=== PATIENT | female | born 1965 | race Caucasian/White ===

== ENCOUNTER 2017-11-15 08:32 | Emergency (ER) | payer OTHER ==
--- OUTSIDE RECORDS SUMMARY | 2017-11-15 08:35 | XMS REPORT | Continuity of Care Document ---
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 P [id number] [facility] B[employer]IT [facility] THE MAIL [employer] BENEFIT PLAN - [facility] [employer] [facility] THE MAIL [employer]LERS BENEFIT PLAN - [employer] [employer]IT [facility] [employer] [facility] B[employer]EFIT [facility]EFIT [facility] BENEFIT HEN[facility] BENEFIT HEN[facility] BENEFIT HEN[facility] BENEFIT HEN[facility] BENEFIT HEN[facility] BENEFIT H[facility] [facility] [facility] Encounters Encounter Performer Location Date Office Visit Zee Espana MD [facility] [place] Sep 02, 2014 Allergies, Adverse Reactions, Alerts Type Substance Reaction Status Drug allergy CODEINE Active Problems Problem Effective Dates Problem Status WELL WOMAN July 18, 2012 Active CONTRACEPTIVE MANAGEMENT July 18, 2012 Active FAMILY HISTORY BREAST CANCER Aug 27, 2013 Active BREAST MASS Jun 17, 2014 Active Procedures Date Description Comments Apr 08, 2010 mammogram Done May 10, 2011 vaginal Pap smear results Done July 18, 2012 smoking status never smoker July 18, 2012 mammogram Completed Aug 27, 2013 vaginal Pap smear results normal Aug 27, 2013 mammogram Completed Aug 27, 2013 smoking status Never smoker Apr 08, 2010 mammogram Completed Jun 17, 2014 smoking status Never smoker Jun 17, 2014 mammogram Completed Mar 16, 2009 mammogram Completed Mar 10, 2008 mammogram Completed Feb 13, 2007 mammogram Completed Feb 13, 2006 mammogram Completed Sep 02, 2014 vaginal Pap smear results normal Sep 02, 2014 smoking status Never smoker Medications Medication Instructions Start Date Status ZOLOFT 50 MG TABS 1 tab a day Active MIRCETTE 0.15-0.02/0.01 MG (30/07) TABS one tablet p.o. q. day July 18, 2012 Active WOMENS MULTIVITAMIN PLUS TABS 1 TAB BY MOUTH DAILY July 18, 2012 Inactive Vital Signs Date Description Test Result July 18, 2012 height E&M - 8302-2 HEIGHT 65 in July 18, 2012 weight E&M - 3141-9 WEIGHT 197.5 lb July 18, 2012 blood pressure, systolic - 8480-6 BP SYSTOLIC 132 mm Hg July 18, 2012 blood pressure, diastolic - 8462-4 BP DIASTOLIC 86 mm Hg Aug 27, 2013 weight E&M - 3141-9 WEIGHT 197 lb Aug 27, 2013 blood pressure, systolic, sitting, left arm BP SYS SIT L 168 mm Hg Aug 27, 2013 blood pressure, diastolic, sitting, left arm BP SAKINA SIT L 85 mm Hg Aug 27, 2013 blood pressure, systolic - 8480-6 BP SYSTOLIC 168 mm Hg Aug 27, 2013 blood pressure, diastolic - 8462-4 BP DIASTOLIC 85 mm Hg Aug 27, 2013 pulse rate, sitting, left PULSE SIT L 67 /min Aug 27, 2013 temperature E&M TEMPERATURE 98.3 deg f Aug 27, 2013 pulse rate E&M - 8867-4 PULSE RATE 67 /min Jun 17, 2014 weight E&M - 3141-9 WEIGHT 201 lb Jun 17, 2014 pulse rate, sitting, right PULSE SIT R 81 /min Jun 17, 2014 blood pressure, systolic, sitting, right arm BP SYS SIT R 136 null Jun 17, 2014 blood pressure, diastolic, sitting, right arm BP SAKINA SIT R 81 mmHg Jun 17, 2014 blood pressure, systolic - 8480-6 BP SYSTOLIC 136 mm Hg Jun 17, 2014 blood pressure, diastolic - 8462-4 BP DIASTOLIC 81 mm Hg Jun 17, 2014 pulse rate E&M - 8867-4 PULSE RATE 81 /min Sep 02, 2014 weight E&M - 3141-9 WEIGHT 208 lb Sep 02, 2014 blood pressure, systolic, sitting, left arm BP SYS SIT L 139 mm Hg Sep 02, 2014 blood pressure, diastolic, sitting, left arm BP SAKINA SIT L 90 mm Hg Sep 02, 2014 blood pressure, systolic - 8480-6 BP SYSTOLIC 139 mm Hg Sep 02, 2014 blood pressure, diastolic - 8462-4 BP DIASTOLIC 90 mm Hg Sep 02, 2014 pulse rate, sitting, left PULSE SIT L 71 /min Sep 02, 2014 pulse rate E&M - 8867-4 PULSE RATE 71 /min Results Date Description Test Name Value Reference Interpretation Status May 10, 2011 vaginal Pap smear PAP SMEAR Done null results Aug 27, 2013 vaginal Pap smear PAP SMEAR normal null results Sep 02, 2014 vaginal Pap smear PAP SMEAR normal null results
--- OUTSIDE RECORDS SUMMARY | 2017-11-15 08:35 | XMS REPORT | Continuity of Care Document ---
:[address] 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 q. day July 18, 2012 Active Vital Signs Date Description Test Result July [...] E&M - 8867-4 PULSE RATE 81 /min Results Date Description Test Name Value Reference Interpretation Status May 10, 2011 vaginal Pap smear PAP SMEAR Done null results Aug 27, 2013 vaginal Pap smear PAP SMEAR normal null results
--- OUTSIDE RECORDS SUMMARY | 2017-11-15 08:35 | XMS REPORT | Continuity of Care Document ---
:1965 Author Organization Interface Problems Problem Status Onset Classification Date Comments Source Date Reported BREAST MASS Active Condition 09/02/2014 Medical 5 Group FAMILY HISTORY Active Condition 09/02/2014 Medical BREAST CANCER 4 Group WELL WOMAN Active Condition 09/02/2014 Medical 3 Group CONTRACEPTIVE Active Condition 09/02/2014 Medical MANAGEMENT 3 Group Medications Medication Details Route Status Patient Ordering Order Source Instructions Provider Date WOMENS 1 TAB BY No Longer 07/19/19 MULTIVITAMIN MOUTH Active 13 Medical PLUS TABS DAILY Group MIRCETTE one tablet Active 07/19/19 MH 0.15-0.02/0.01 p.o. q. 13 Medical MG (30/07) TABS day Group MIRCETTE one tablet Active 07/19/19 MH 0.15-0.02/0.01 p.o. q. 13 Medical MG (30/07) TABS day Group ZOLOFT 50 MG 1 tab a Active MH TABS day Medical Group ZOLOFT 50 MG 1 tab a Active TABS day Medical Group Allergies, Adverse Reactions, Alerts Substance Category Reaction Severity Reaction Status Date Comments Source type Reported CODEINE Drug CODEINE allergy Medical Group Immunizations Immunization Date Given Site Status Last Updated Comments Source Results Order Name Results Value Reference Date Interpretation Comments Source Range Breast Breast 01/10 - [facility] KENYETTA incl KENYETTA incl CAD MA CAD MA Read by: Sung Pena MD Dictated Date/time: 01/10/17 09:41 BILATERAL DIGITAL SCREENING MAMMOGRAM WITH CAD: 01/10/2017 Electronically Signed by: Sung Pena MD 01/10/17 09 :41 FINAL REPORT CLINICAL: Screening/Screening. Current study was evaluated with a Computer Aided Detection (CAD) system. COMPARISON:Comparison is made to exams dated: 11/04/2015 mammogram, 2014 mammogram, and 08/27/2013 mammogram - [facility]. TECHNIQUE: Mammographic views were obtained using digital acquisition. Current study was also evaluated with a Computer Aided Detection (CAD) system. There are scattered fibroglandular densities in both breasts. FINDINGS: There are benign calcifications in the right breast. No significant masses, calcifications, or other findings are seen in either breast. There has been no significant interval change. IMPRESSION: BENIGN RECOMMENDATION:There is no mammographic evidence of malignancy. A 1 year screening mammogram is recommended.(01/11/2018) This exam was interpreted at [id number] for [place]. Sung Pena M.D. jt/penrad:01/10/2017 09:41:42 Service Observer(s): Leticia Wallace, [facility] letter sent: BI-RADS 1/2 Mammogram BI-RADS: 2 Benign Digital Digital - DIGITAL MAMMO SCREENING KENYETTA HAQUE 11/03 - [facility]2016 - [place] Screening Screening BILATERAL DIGITAL SCREENING MAMMOGRAM WITH CAD: 2015 Kenyetta Anthony MA CLINICAL: Screening. Read by: Russ Parks MD Dictated Date/time: 11/04/15 14:35 Electronically Signed by: Russ Parks 11/04/15 14:35 FINAL REPORT Current study was evaluated with a Computer Aided Detection (CAD) system. Comparison is made to exams dated: 08/27/2013 mammogram and 09/02/2014 mammogram - [facility]. There are scattered fibroglandular densities in both breasts. No significant masses, calcifications, or other findings are seen in either breast. There has been no significant interval change. IMPRESSION: NEGATIVE There is no mammographic evidence of malignancy. A 1 year screening mammogram is recommended. Russ Parks M.D jv/penrad:11/04/2015 14:35:32 Service Observer: Marsha Franz, [facility] This exam was dictated and interpreted by [id number] for [facility]. letter sent: Normal exam Mammogram BI-RADS: 1 Negative [place] [place] PAP SMEAR normal 09/02 Medical Group [employer] [place] PAP SMEAR normal 08/27 Medical Group Pathology PAP SMEAR normal 08/27 Medical Group [place] [place] PAP SMEAR Done Medical Group Pathology PAP SMEAR Done Medical Group Vital Signs Vital Sign Value Date Comments Source Weight 208 09/02/2014 Medical Group Systolic (mm Hg) 139 09/02/2014 Medical Group Diastolic (mm Hg) 90 09/02/2014 Medical Group Heart Rate 71 09/02/2014 Medical Group Weight 201 06/17/2014 Medical Group Heart Rate 81 06/17/2014 Medical Group Systolic (mm Hg) 136 06/17/2014 Medical Group Diastolic (mm Hg) 81 06/17/2014 Medical Group Weight 197 08/27/2013 Medical Group Systolic (mm Hg) 168 08/27/2013 Medical Group Diastolic (mm Hg) 85 08/27/2013 Medical Group Heart Rate 67 08/27/2013 Medical Group Temperature Oral (F) 98.3 F 08/27/2013 Medical Group Height 65 07/18/2012 Medical Group Weight 197.5 07/18/2012 Medical Group Systolic (mm Hg) 132 07/18/2012 Medical Group Diastolic (mm Hg) 86 07/18/2012 Medical Group Encounters Location Location Encounter Encounter Reason Attending ADM DC Status Source Details Type Number For Provider Date Date Visit [facility] Lab Report [id number] Buffy 08/27 08/27 [facility] [address] /2013 [facility] [place] [facility] Office [id number] Zee 06/17 06/17 [facility] Visit [address], /2014 Medical [facility] [place] [facility] [employer] [facility] Lab Report [id number] Zee 09/02 09/02 [facility] [address], /2014 Medical [facility] [place] [facility] [facility] Office [id number] Zee 09/02 09/02 [facility] Visit [address], /2014 Medical [facility] [place] [facility] [employer] [facility] Outpatient [id number] MAMMO VISIT 09/[address] [facility] [place] [facility] [id number] ZEE-JOSE ENRIQUE 09/06 [facility] [place] [facility] [id number] MAMMO VISIT 11/[address] [facility] [place] [facility] [id number] ZEE-JOSE ENRIQUE 11/03 Active [facility] [place] [facility] [id number] ZEE-JOSE ENRIQUE 11/09 Active [facility] [place] [facility] [id number] ZEE-JOSE ENRIQUE 11/29 [facility] [place] Outpatient [id number] MAMMO VISIT 11/[address] [facility] [place] Outpatient [id number] MAMMO VISIT 01/[address] [facility] [place] Outpatient [id number] ZEE-JOSE ENRIQUE 01/10 [facility] [place] Outpatient [id number] MAMMO VISIT 01/[address] [facility] [place] Procedures Procedure Code Date Perfomer Comments Source vaginal Pap smear 67965 09/02/2014 normal Medical results Group mammogram 67519 09/02/2014 Completed Medical Group mammogram 64577 06/17/2014 Completed Medical Group vaginal Pap smear 81353 08/27/2013 normal Medical results Group mammogram 86173 08/27/2013 Completed Medical Group mammogram 70934 07/18/2012 Completed Medical Group vaginal Pap smear 94530 05/10/2011 Done Medical results Group mammogram 03861 04/08/2010 Done Medical Group mammogram 22797 04/08/2010 Completed Medical Group mammogram 52382 03/16/2009 Completed Medical Group mammogram 23423 03/10/2008 Completed Medical Group mammogram 26584 02/13/2007 Completed Medical Group mammogram 95129 02/13/2006 Completed Medical Group
--- OUTSIDE RECORDS SUMMARY | 2017-11-15 08:35 | XMS REPORT | Continuity of Care Document ---
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 q. day July 18, 2012 Active WOMENS MULTIVITAMIN PLUS TABS 1 TAB BY MOUTH DAILY July 18, 2012 Inactive Vital Signs Date Description Test Result July 18, 2012 height E&M - 8302-2 HEIGHT 65 in July 18, 2012 weight Princess&M - 3141-9 WEIGHT 197.5 lb July 18, [...] RATE 67 /min Jun 17, 2014 weight E&Alena - 3141-9 WEIGHT 201 lb Jun 17, [...]
--- OUTSIDE RECORDS SUMMARY | 2017-11-15 08:35 | XMS REPORT | Continuity of Care Document ---
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 [employer] Aug 27, 2013 Allergies, Adverse Reactions, Alerts Type Substance Reaction Status Drug allergy CODEINE Active Problems Problem Effective Dates Problem Status WELL WOMAN July 18, 2012 Active CONTRACEPTIVE MANAGEMENT July 18, 2012 Active FAMILY HISTORY BREAST CANCER Aug 27, 2013 Active Procedures Date Description Comments Apr 08, 2010 mammogram Done May 10, 2011 vaginal Pap smear results Done July 18, 2012 smoking status never smoker July 18, 2012 mammogram Completed Aug 27, 2013 vaginal Pap smear results normal Aug 27, 2013 mammogram Completed Aug 27, 2013 smoking status Never smoker Apr 08, 2010 mammogram Completed Medications Medication Instructions Start Date Status ZOLOFT 50 MG TABS 1 tab a day Active WOMENS MULTIVITAMIN PLUS TABS 1 TAB BY MOUTH DAILY July 18, 2012 Active MIRCETTE 0.15-0.02/0.01 MG (30/07) TABS one tablet p.o. q. day July 18, 2012 Active Vital Signs Date Description Test Result July 18, 2012 height E&M HEIGHT 65 in July 18, 2012 weight E&M WEIGHT 197.5 lb July 18, 2012 blood pressure, systolic BP SYSTOLIC 132 mm Hg July 18, 2012 blood pressure, diastolic BP DIASTOLIC 86 mm Hg Aug 27, 2013 weight E&M WEIGHT 197 lb Aug 27, 2013 blood pressure, systolic, sitting, left arm BP SYS SIT L 168 mm Hg Aug 27, 2013 blood pressure, diastolic, sitting, left arm BP SAKINA SIT L 85 mm Hg Aug 27, 2013 blood pressure, systolic BP SYSTOLIC 168 mm Hg Aug 27, 2013 blood pressure, diastolic BP DIASTOLIC 85 mm Hg Aug 27, 2013 pulse rate, sitting, left PULSE SIT L 67 /min Aug 27, 2013 temperature E&M TEMPERATURE 98.3 deg f Aug 27, 2013 pulse rate E&M PULSE RATE 67 /min Results Date Description Test Name Value Reference Interpretation Status May 10, 2011 vaginal Pap smear PAP SMEAR Done null results Aug 27, 2013 vaginal Pap smear PAP SMEAR normal null results
[2017-11-15 09:15] LABS: Absolute Lymphocytes (CBC) 1.1 K/uL (0.7-4.9); Absolute Monocytes 0.4 K/uL (0.1-1.3); Absolute Neutrophil 5.2 K/uL (1.8-8.0); Basophils % 0.6 % (0-1.3); Eosinophils % 1.8 % (0-4.4); Hematocrit 40.4 % (36.0-45.0); Lymphocytes % 15.7 % (15.3-44.8); MCH 30.1 pg (27.0-35.0); MCV 87.4 fL (80-100); MPV 7.7 fL (7.6-11.3); Monocytes % 6.2 % (3.3-12.3); RBC Red Blood Cell Count 4.62 M/uL (3.86-4.86)
[2017-11-15 09:28] LABS: Protime INR 0.96
--- NOTE | 2017-11-15 09:33 | RAD REPORT ---
EXAM DESCRIPTION: RAD - Chest Single View - 11/15/2017 9:17 am CLINICAL HISTORY: Chest pain;Palpitations Chest pain. COMPARISON: Chest Single View dated 12/27/2016; CHEST PA AND LAT 2 VIEW dated 11/25/2014; CHEST PA AN D LAT 2 VIEW dated 07/10/2012; CHEST SINGLE VIEW dated 05/28/2010 FINDINGS: Portable technique limits examination quality. The lungs are grossly clear. The heart is normal in size. No displaced fractures. IMPRESSION: No acute intrathoracic process suspected.
[2017-11-15 09:38] LABS: ALT/SGPT 21 U/L (12-78); AST/SGOT 20 U/L (15-37); Albumin 4.1 g/dL (3.4-5.0); Alkaline Phosphatase 98 U/L (45-117); BUN Blood Urea Nitrogen 16 mg/dL (7-18); Bicarbonate 31 mmol/L (21-32); Bilirubin Direct 0.1 mg/dL (0-0.2); Bilirubin Total 0.4 mg/dL (0.2-1.0); CKMB Creatine Kinase MB < 1.0 ng/mL (0.3-3.6); Creatine Phosphokinase 91 U/L (26-192); Glucose Level 83 mg/dL (74-106); Magnesium 2.2 mg/dL (1.8-2.4); NT PRO-BNP 123 pg/mL (<125); Potassium 4.2 mmol/L (3.5-5.1); Sodium Level 140 mmol/L (136-145); Troponin (Emerg Dept Use Only) < 0.02 ng/mL (0.0-0.045)
--- NOTE | 2017-11-15 11:12 | EKG ---
Test Date: 2017-11-15 Test Time: 08:49:55 [place] Attendant: MARY MEASUREMENT RESULTS: Intervals: Rate: 76 CT: 138 QRSD: 90 QT: 428 QTc: 481 [place]: P: 20 CT: 138 QRS: 11 T: 11 INTERPRETIVE STATEMENTS: Normal sinus rhythm with sinus arrhythmia Minimal voltage criteria for LVH, may be normal variant Cannot rule out Anterior infarct, age undetermined Abnormal ECG Compared to ECG 05/28/2010 11:42:11 Left ventricular hypertrophy now present Myocardial infarct finding now present ST (T wave) deviation no longer present Electronically Signed On 11-15-17 11:11:22 CDT by Chriss Saavedra
[2017-11-15 13:08] LABS: CKMB Creatine Kinase MB < 1.0 ng/mL (0.3-3.6); Creatine Phosphokinase 71 U/L (26-192); Troponin (Emerg Dept Use Only) < 0.02 ng/mL (0.0-0.045)
--- NOTE | 2017-11-15 13:19 | ER ---
Nurse's Notes [facility] Name: Caity Lala Age: 52 yrs Sex: Female : 1965 Arrival Date: 11/15/2017 Time: 08:34 Bed 26 Private MD: Franky Vega Diagnosis: Chest pain, unspecified Presentation: 11/15 08:37 Presenting complaint: Patient states: chest pain and palpitations that began this aa5 morning. Pt states "I had this years ago and they said it was a panic attack". 08:37 Transition of care: patient was not received from another setting of care. Onset of aa5 symptoms was November 15, 2017. Risk Assessment: Do you want to hurt yourself or someone else? Patient reports no desire to harm self or others. Initial Sepsis Screen: Does the patient meet any 2 criteria? No. Patient's initial sepsis screen is negative. Does the patient have a suspected source of infection? No. Patient's initial sepsis screen is negative. Care prior to arrival: None. 08:37 Method Of Arrival: Ambulatory aa5 08:37 Acuity: SUZANNA 3 aa5 Triage Assessment: 08:59 General: Appears in no apparent distress. uncomfortable, Behavior is calm, cooperative, hj appropriate for age. Pain: Complains of pain in chest Pain currently is 9 out of 10 on a pain scale. 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 - Social history:: Smoking status: Patient/guardian denies using tobacco. - Ebola Screening: : No symptoms or risks identified at this time. Screenin:58 Abuse screen: Denies threats or abuse. Nutritional screening: No deficits noted. hj Tuberculosis screening: No symptoms or risk factors identified. Fall Risk None identified. Assessment: 09:01 General: Appears in no apparent distress. uncomfortable, Behavior is calm, cooperative, hj appropriate for age. Pain: Complains of pain in chest. Neuro: Level of Consciousness is awake, alert, obeys commands, Oriented to person, place, time, situation, Appropriate for age. Cardiovascular: Capillary refill < 3 seconds Patient's skin is warm and dry. Respiratory: Airway is patent Respiratory effort is even, unlabored, Respiratory pattern is regular, symmetrical. GI: No signs and/or symptoms were reported involving the gastrointestinal system. : No signs and/or symptoms were reported regarding the genitourinary system. EENT: No signs and/or symptoms were reported regarding the EENT system. Derm: No signs and/or symptoms reported regarding the dermatologic system. Musculoskeletal: No signs and/or symptoms reported regarding the musculoskeletal system. 09:10 Reassessment: states "i think its just panic attack, but i want to make sure its not my hj heart"; family in room;. 10:00 Reassessment: Patient appears in no apparent distress at this time. Patient and/or ch family updated on plan of care and expected duration. Pain level reassessed. Patient is alert, oriented x 3, equal unlabored respirations, skin warm/dry/pink. Patient states feeling better. Patient states symptoms have improved. General: Appears in no apparent distress. comfortable, Behavior is cooperative, appropriate for age. Pain: Complains of pain in chest Pain currently is 8 out of 10 on a pain scale. 11:00 Reassessment: Patient appears in no apparent distress at this time. Patient and/or ch family updated on plan of care and expected duration. Pain level reassessed. Patient is alert, oriented x 3, equal unlabored respirations, skin warm/dry/pink. Patient states feeling better. Patient states symptoms have improved. 12:30 Reassessment: Patient appears in no apparent distress at this time. No changes from previously documented assessment. Patient and/or family updated on plan of care and expected duration. Pain level reassessed. pt verb understanding of wait for repeated cardiac enzymes. 13:55 Reassessment: Patient appears in no apparent distress at this time. Patient and/or ch family updated on plan of care and expected duration. Pain level reassessed. Patient is alert, oriented x 3, equal unlabored respirations, skin warm/dry/pink. Vital Signs: 08:39 BP 154 / 92; Pulse 77; Resp 18 S; Temp 97.4(TE); Pulse Ox 100% on R/A; Weight 81.65 kg aa5 (R); Height 5 ft. 4 in. (162.56 cm) (R); Pain 9/10; 09:11 BP 122 / 67; Pulse 75; Resp 18; Pulse Ox 100% on R/A; Pain 9/10; hj 10:00 BP 116 / 71; Pulse 77; Resp 16; Temp 98.3; Pulse Ox 99% on R/A; Pain 8/10; ch 13:55 BP 118 / 78; Pulse 84; Resp 16; Temp 97.9; Pulse Ox 99% on R/A; Pain 5/10; ch 08:39 Body Mass Index 30.90 (81.65 kg, 162.56 cm) aa5 10:00 pt states she does not want any pain medication at this time ED Course: 08:34 Patient arrived in ED. mr 08:34 Franky Vega MD is Private Physician. mr 08:38 Arm band placed on Patient placed in an exam room, on a stretcher. aa5 08:42 [facility] Rogel [facility]-C [facility]. snw 08:42 Iván Pool MD is Attending Physician. snw 08:46 Steve Camejo, JOSTIN is Primary Nurse. hj 08:47 Triage completed. aa5 08:56 EKG done, by soils technician. reviewed by Lydia LONG. 3 08:56 Initial lab(s) drawn, by ma, sent to lab. Inserted saline lock: 22 gauge in left hj antecubital area, using aseptic technique. Blood collected. 08:59 Patient has correct armband on for positive identification. Placed in gown. Bed in low hj position. Call light in reach. Side rails up X 1. 09:16 X-ray completed. Portable x-ray completed in exam room. Patient tolerated procedure sw well. 09:17 XRAY Chest (1 view) In Process Unspecified. EDMS 10:00 No apparent distress. Resting quietly. ch 10:00 child monitor on. Pulse ox on. NIBP on. Warm blanket given. ch 10:00 No provider procedures requiring assistance completed. IV discontinued, intact, ch bleeding controlled, No redness/swelling at site. Pressure dressing applied. 10:50 Primary Nurse role handed off by Steve Camejo, JOSTIN 10:50 Radha Alvarez, RN is Primary Nurse. 13:18 Franky Vega MD is Referral Physician. snw Administered Medications: No medications were administered Outcome: 10:00 Discharged to home ambulatory, with family. 10:00 Condition: stable 10:00 Discharge instructions given to patient, family, Instructed on discharge instructions, follow up and referral plans. medication usage, Demonstrated understanding of instructions, follow-up care, medications, Prescriptions given X 2. 13:19 Discharge ordered by MD. snw 13:58 Patient left the ED. Signatures: Dispatcher [employer] EDMS Radha Alvarez, RN RN Lydia Rogel, CLERK TELEVISION PRODUCTION-C CLERK TELEVISION PRODUCTION-Csnw Padma Zazueta mr Armas, Suellen, RN RN israel5 Wendi Garcia Henry, RN RN Sera Toussaint 3
--- NOTE | 2017-11-15 13:19 | EDPHYS ---
Physician Documentation [facility] Name: Caity Lala Age: 52 yrs Sex: Female : 1965 Arrival Date: 11/15/2017 Time: 08:34 Bed 26 Private MD: Franky Vega ED Physician Iván Pool HPI: 11/15 08:48 This 52 yrs old Female presents to ER via Ambulatory with complaints of Fast snw Heart Rate. 08:48 Onset: The symptoms/episode began/occurred suddenly, this morning. Associated signs and snw symptoms: Pertinent positives: chest pain. Modifying factors: The patient symptoms are alleviated by nothing. The patient has experienced a previous episode. The patient has not recently seen a physician, the patient's primary care provider is Dr. Dr. Vega. denies fever, cough, SOB. 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 - Social history:: Smoking status: Patient/guardian denies using tobacco. - Ebola Screening: : No symptoms or risks identified at this time. ROS: 08:47 Constitutional: Negative for fever, chills, and weight loss, Eyes: Negative for injury, snw pain, redness, and discharge, ENT: Negative for injury, pain, and discharge, Neck: Negative for injury, pain, and swelling, Respiratory: Negative for shortness of breath, cough, wheezing, and pleuritic chest pain, Abdomen/GI: Negative for abdominal pain, nausea, vomiting, diarrhea, and constipation, Back: Negative for injury and pain, : Negative for injury, bleeding, discharge, and swelling, MS/Extremity: Negative for injury and deformity, Skin: Negative for injury, rash, and discoloration, Neuro: Negative for headache, weakness, numbness, tingling, and seizure. 08:47 Cardiovascular: Positive for chest pain, palpitations. Exam: 08:47 Constitutional: This is a well developed, well nourished patient who is anxious, snw alert, and in no acute distress. Head/Face: Normocephalic, atraumatic. Eyes: Pupils equal round and reactive to light, extra-ocular motions intact. Lids and lashes normal. Conjunctiva and sclera are non-icteric and not injected. Cornea within normal limits. Periorbital areas with no swelling, redness, or edema. ENT: Nares patent. No nasal discharge, no septal abnormalities noted. Tympanic membranes are normal and external auditory canals are clear. Oropharynx with no redness, swelling, or masses, exudates, or evidence of obstruction, uvula midline. Mucous membranes moist. Neck: Trachea midline, no thyromegaly or masses palpated, and no cervical lymphadenopathy. Supple, full range of motion without nuchal rigidity, or vertebral point tenderness. No Meningismus. Chest/axilla: Normal chest wall appearance and motion. Nontender with no deformity. No lesions are appreciated. Cardiovascular: Regular rate and rhythm with a normal S1 and S2. No gallops, murmurs, or rubs. Normal PMI, no JVD. No pulse deficits. Respiratory: Lungs have equal breath sounds bilaterally, clear to auscultation and percussion. No rales, rhonchi or wheezes noted. No increased work of breathing, no retractions or nasal flaring. Abdomen/GI: Soft, non-tender, with normal bowel sounds. No distension or tympany. No guarding or rebound. No evidence of tenderness throughout. Back: No spinal tenderness. No costovertebral tenderness. Full range of motion. Skin: Warm, dry with normal turgor. Normal color with no rashes, no lesions, and no evidence of cellulitis. MS/ Extremity: Pulses equal, no cyanosis. Neurovascular intact. Full, normal range of motion. Neuro: Awake and alert, GCS 15, oriented to person, place, time, and situation. Cranial nerves II-XII grossly intact. Motor strength 5/5 in all extremities. Sensory grossly intact. Cerebellar exam normal. Normal gait. Vital Signs: 08:39 BP 154 / 92; Pulse 77; Resp 18 S; Temp 97.4(TE); Pulse Ox 100% on R/A; Weight 81.65 kg aa5 (R); Height 5 ft. 4 in. (162.56 cm) (R); Pain 9/10; 09:11 BP 122 / 67; Pulse 75; Resp 18; Pulse Ox 100% on R/A; Pain 9/10; hj 10:00 BP 116 / 71; Pulse 77; Resp 16; Temp 98.3; Pulse Ox 99% on R/A; Pain 8/10; ch 13:55 BP 118 / 78; Pulse 84; Resp 16; Temp 97.9; Pulse Ox 99% on R/A; Pain 5/10; ch 08:39 Body Mass Index 30.90 (81.65 kg, 162.56 cm) aa5 10:00 pt states she does not want any pain medication at this time ch MDM: 08:42 Patient medically screened. snw 14:08 Data reviewed: vital signs, nurses notes. Data interpreted: Pulse oximetry: on room air snw is 99 %. Interpretation: normal. Counseling: I had a detailed discussion with the patient and/or guardian regarding: the historical points, exam findings, and any diagnostic results supporting the discharge/admit diagnosis, lab results, radiology results, the need for outpatient follow up, to return to the emergency department if symptoms worsen or persist or if there are any questions or concerns that arise at home. Special discussion: Based on the patient's history, exam, and Dx evaluation, there is no indication for emergent intervention or inpatient Tx. It is understood by the patient/guardian that if the Sx's persist or worsen they need to return immediately for re-evaluation. Based on the history and exam findings, there is no indication for further emergent testing or inpatient evaluation. I discussed with the patient/guardian the need to see the surgical supervisor for further evaluation of the symptoms. I discussed with the patient/guardian the need to see the primary care provider for further evaluation of the symptoms. 11/15 08:46 Order name: Basic Metabolic Panel; Complete Time: 10:00 snw 11/15 08:46 Order name: CBC with Diff; Complete Time: 09:24 snw 11/15 08:46 Order name: Ckmb; Complete Time: 10:00 snw 11/15 08:46 Order name: CPK; Complete Time: 10:00 snw 11/15 08:46 Order name: LFT's; Complete Time: 10:00 snw 11/15 08:46 Order name: Magnesium; Complete Time: 10:00 snw 11/15 08:46 Order name: NT PRO-BNP; Complete Time: 10:00 snw 11/15 08:46 Order name: PT-INR; Complete Time: 10:00 snw 11/15 08:46 Order name: Ptt, Activated; Complete Time: 10:00 snw 11/15 08:46 Order name: Troponin (emerg Dept Use Only); Complete Time: 10:00 snw 11/15 08:46 Order name: XRAY Chest (1 view); Complete Time: 09:35 snw 11/15 11:39 Order name: CPK; Complete Time: 13:13 snw 11/15 11:39 Order name: Troponin (emerg Dept Use Only); Complete Time: 13:13 snw 11/15 11:39 Order name: Ckmb; Complete Time: 13:13 snw 11/15 08:46 Order name: EKG; Complete Time: 08:47 snw 11/15 08:46 Order name: Cardiac monitoring; Complete Time: 08:48 snw 11/15 08:46 Order name: EKG - Nurse/Tech; Complete Time: 08:48 snw 11/15 08:46 Order name: IV Saline Lock; Complete Time: 09:12 snw 11/15 08:46 Order name: Labs collected and sent; Complete Time: 09:12 snw 11/15 08:46 Order name: O2 Per Protocol; Complete Time: 08:48 snw 11/15 08:46 Order name: O2 Sat Monitoring; Complete Time: 08:48 snw 11/15 11:39 Order name: EKG; Complete Time: 11:40 snw Administered Medications: No medications were administered Disposition: 14:13 Co-signature as Attending Physician, Iván Pool MD I agree with the assessment and kdr plan of care. Disposition: 11/15/17 13:19 Discharged to Home. Impression: Chest pain, unspecified. - Condition is Stable. - Discharge Instructions: Nonspecific Chest Pain, Aspirin and Your Heart. - Prescriptions for Protonix 40 mg Oral Tablet - take 1 tablet by ORAL route once daily; 30 tablet. Diclofenac Sodium 75 mg Oral Tablet Sustained Release - take 1 tablet by ORAL route 2 times per day; 30 tablet. - Work release form, Medication Reconciliation Form, Thank You Letter, Antibiotic Education, Prescription Opioid Use form. - Follow up: Franky Vega MD; When: Tomorrow; Reason: Recheck today's complaints, Continuance of care, Re-evaluation by your physician. Follow up: Emergency Department; When: As needed; Reason: Worsening of condition. Signatures: Dispatcher [employer] EDMS Radha Alvarez, RN RN Iván Pool MD MD [facility] Lydia Rogel, WASHER CUTTER-C WASHER CUTTER-Csnw Suellen Armas, RN RN aa5 Corrections: (The following items were deleted from the chart) 13:58 13:19 11/15/2017 13:19 Discharged to Home. Impression: Chest pain, unspecified. ch Condition is Stable. Forms are Medication Reconciliation Form, Thank You Letter, Antibiotic Education, Prescription Opioid Use. Follow up: Franky Vega; When: Tomorrow; Reason: Recheck today's complaints, Continuance of care, Re-evaluation by your physician. Follow up: Emergency Department; When: As needed; Reason: Worsening of condition. snw
[2017-11-15 14:10] VITALS: O2SAT 99
[2017-11-15 14:12] VITALS: BP 118/78; TEMP 97.9
--- NOTE | 2017-11-16 07:37 | EKG ---
Test Date: 2017-11-15 Test Time: 12:06:03 Transit Driver: MARY MEASUREMENT RESULTS: Intervals: Rate: 74 VA: 140 QRSD: 86 QT: 402 QTc: 446 [place]: P: 72 VA: 140 QRS: 77 T: 63 INTERPRETIVE STATEMENTS: Normal sinus rhythm Normal ECG Compared to ECG 11/15/2017 08:49:55 Sinus arrhythmia no longer present Left ventricular hypertrophy no longer present Myocardial infarct finding no longer present Electronically Signed On 11-16-17 07:34:28 CDT by Chriss Saavedra
== END 2017-11-15 13:58 | disposition home or self-care (01) ==
LOC: ER 08:32
DX: R07.9 Chest pain, unspecified (principal); F32.9 Major depressive disorder, single episode, unspecified; Z88.5 Allergy status to narcotic agent
CPT/HCPCS: 36415; 71045; 80048; 80076; 82550; 82553; 83735; 83880; 84484; 85025; 85610; 85730; 93005; 99284

== ENCOUNTER 2024-05-05 11:47 | Observation (INO) | payer OTHER ==
--- NOTE | 2024-05-05 12:12 | RAD REPORT ---
EXAM: CT brain without contrast HISTORY: STROKE ALERT COMPARISON: None TECHNIQUE: Multiple contiguous axial images were obtained and a CT of the brain without contrast. Sag ittal and coronal reformats were performed. One or more of the following dose reduction techniques were used: Automated exposure control, adjust ment of the mA and/or kV according to patient size, and/or iterative reconstruction. FINDINGS: No evidence of hydrocephalus, intracranial hemorrhage, or extra-axial fluid collection. Subtle area of diminished density is seen in the region of the right [place] measuring about 12 mm. No evidence of midline shift or areas of brain edema. The calvarium is intact. The visualized paranasal sinuses and mastoid air cells are essentially clear . IMPRESSION: No acute hemorrhage, hydrocephalus or midline shift. Subtle area of diminished density (approximately 10-12 mm) right valentina questionable for ischemia. MRI brain with be recommended for follow-up. The findings were communicated with Dr. JUNG at 05/05/2024 12:09 PM by telephone.
--- NOTE | 2024-05-05 12:26 | RAD REPORT ---
EXAMINATION: CTA HEAD CLINICAL INDICATION: STROKE TECHNIQUE: Axial CT images were obtained through the head after intravenous contrast utilizing angiog raphic protocol with 3D post-processing (maximum intensity projection images, volume rendered images and/or shaded surface rendered images). One or more of the following dose reduction technique s were used: Automated exposure control, adjustment of the mA and/or kV according to patient size, and/or iterative reconstruction. Unless otherwise specified, incidental findings do not require dedic ated imaging follow-up. COMPARISON: No prior exam. FINDINGS: ICA: The petrous, cavernous, and supraclinoid segments of the bilateral internal carotid arteries are normal. The ophthalmic artery origins are visualized and normal. The posterior communicating arteries are patent. KARIN: Anterior cerebral arteries are normal bilaterally. The anterior communicating artery is patent. MCA: Middle cerebral arteries are normal bilaterally. CHIMNEY REPAIRER: Posterior cerebral arteries are normal bilaterally. Vertebrobasilar: The vertebral arteries are patent. The basilar artery is normal in appearance. 3D images confirm these findings. IMPRESSION: No significant flow abnormality is identified.
--- NOTE | 2024-05-05 12:29 | RAD REPORT ---
EXAMINATION: CTA NECK CLINICAL INDICATION: STROKE TECHNIQUE: Axial CT images were obtained from the aortic arch to the skull base after intravenous con trast utilizing angiographic protocol with 3D post-processing (maximum intensity projection images, volume rendered images and/or shaded surface rendered images). One or more of the following dose redu ction techniques were used: Automated exposure control, adjustment of the mA and/or kV according to patient size, and/or iterative reconstruction. Unless otherwise specified, incidental findings do not require dedicated imaging follow-up. COMPARISON: No prior exam. FINDINGS: AORTA: The imaged aortic arch is normal. CCA: The common carotid arteries are patent and normal in caliber. ICA/ECA: Bilateral internal and external carotid arteries are patent. There is no significant interna l carotid artery stenosis. VERTEBRAL: The cervical vertebral arteries are patent. The vertebral arteries are codominant. SOFT TISSUE: No significant neck soft tissue abnormalities. The visualized lung apices are clear. 3D images confirm these findings. IMPRESSION: No significant flow abnormality of the neck vessels is identified. NASCET criteria used. Mild 0-49% stenosis Moderate 50-69% stenosis Severe 70-99% stenosis
[2024-05-05] MEDS ORDERED: FOLIC ACID 5 MG/ML VIAL ONE (12:35)
[2024-05-05] MEDS ORDERED: ASPIRIN 81 MG CHEWABLE TABLET ONE (12:35)
[2024-05-05] MEDS ORDERED: LORazepam 2 MG/ML VIAL ONE (12:35)
[2024-05-05] MEDS ORDERED: NA CHLORIDE 0.9% 1,000 ML ONE (12:36)
[2024-05-05 12:44] LABS: Absolute Eosinophils 0.1 K/uL (0-0.5); Absolute Monocytes 0.4 K/uL (0.1-1.3); Absolute Neutrophil 3.8 K/uL (1.8-8.0); Basophils % 0.6 % (0-1.3); Hematocrit 36.8 % (36.0-45.0); Hemoglobin 12.5 g/dL (12.0-15.0); Lymphocytes % 19.1 % (15.3-44.8); MCH 30.5 pg (27.0-35.0); MCV 89.6 fL (80-100); MPV 7.8 fL (7.6-11.3); Monocytes % 6.7 % (3.3-12.3); Neutrophils % 72.6 % (41.7-73.7); Platelets 239 thou/uL (152-406); RBC Red Blood Cell Count 4.11 M/uL (3.86-4.86); Red Cell Distribution Width 12.7 % (12.1-15.2)
[2024-05-05 12:57] LABS: PT Prothrombin Time 11.2 SECONDS (10.0-13.0); Protime INR 0.98
[2024-05-05 13:02] LABS: Albumin 3.8 g/dL (3.4-5.0); Albumin/Globulin Ratio 1.2 (1.1-1.8); Anion Gap 9.8 mEq/L (5.0-15.0); Bilirubin Direct 0.2 mg/dL (0-0.2); Bilirubin Indirect, Calculated 0.4 mg/dL (0.2-0.8); Bilirubin Total 0.6 mg/dL (0.2-1.0); Globulin 3.1 g/dL (2.3-3.5); Magnesium 1.9 mg/dL (1.6-2.4); Potassium 3.8 mEq/L (3.5-5.1); Protein, Total 6.9 g/dL (6.4-8.2)
--- NOTE | 2024-05-05 13:18 | RAD REPORT ---
EXAM: Chest Single View HISTORY: aphasia COMPARISON: 11/15/2017 FINDINGS: LUNGS/PLEURA: The lungs are clear. No pleural effusions or pneumothorax. No pulmonary edema. MEDIASTINUM: The mediastinal silhouette is within normal limits. CARDIAC: The cardiac silhouette is within normal limits. UPPER ABDOMEN: No significant abnormality. BONES: No acute abnormality. LINES/TUBES/OTHER: N/A IMPRESSION: No evidence of acute cardiopulmonary disease.
--- NOTE | 2024-05-05 13:36 | ER ---
Nurse's Notes [facility] Name: Caity Mata Age: 58 yrs Sex: Female : 1965 Arrival Date: 05/05/2024 Time: 11:47 Bed 6 Private MD: Diagnosis: Aphasia;Weakness;Chest pain, unspecified Presentation: 05/05 11:53 Chief complaint: Patient states: CP since last night. Became unresponsive at work ll1 around 1030, so they called EMS. EMS states: BP 204/111, FS 106, 20 R AC. Coronavirus screen: Client denies travel out of the [place] in the last 14 days. At this time, the client does not indicate any symptoms associated with coronavirus-19. Ebola Screen: Patient denies travel to an Ebola-affected area in the 21 days before illness onset. Initial Sepsis Screen: Does the patient meet any 2 criteria? No. Patient's initial sepsis screen is negative. Does the patient have a suspected source of infection? No. Patient's initial sepsis screen is negative. Risk Assessment: Do you want to hurt yourself or someone else? Patient reports no desire to harm self or others. Onset of symptoms was May 04, 2024. 11:53 Method Of Arrival: EMS ll1 11:53 Acuity: SUZANNA 2 ll1 Triage Assessment: 11:56 General: Appears uncomfortable, Behavior is cooperative, appropriate for age, crying. ll1 Pain: Denies pain. Neuro: Reports a syncopal episode weakness. Cardiovascular: Reports chest pain, fatigue. Historical: - Allergies: 11:56 Codeine; ll1 - PMHx: 11:56 Chronic pain; Depression; Anxiety; Hypercholesterolemia; ll1 - PSHx: 11:56 None; ll1 - Immunization history:: Adult Immunizations up to date. - Infectious Disease History:: Denies. - Social history:: Smoking status: Patient denies any tobacco usage or history of. Screenin:58 VAN Screening: Arm Drift: Minor drift. Visual Disturbance: No visual disturbance noted. kc6 Aphasia: Expressive aphasia noted. Provider notified of +VAN scoring. Neglect: No neglect noted. 12:34 [facility] ED Fall Risk Assessment (Adult) History of falling in the last 3 months, kc6 including since admission No falls in past 3 months (0 pts) Confusion or Disorientation No (0 pts) Intoxicated or Sedated No (0 pts) Impaired Gait No (0 pts) Mobility Assist Device Used No (0 pt) Altered Elimination No (0 pt) Score/Fall Risk Level 0 - 2 = Low Risk Oriented to surroundings, Maintained a safe environment, Educated pt \T\ family on fall prevention, incl call for assistance when getting out of bed. Abuse screen: Denies threats or abuse. Denies injuries from another. Nutritional screening: No deficits noted. Tuberculosis screening: No symptoms or risk factors identified. 12:45 [place] Swallow Protocol Exclusion Criteria: Unable to remain alert for testing: No NPO es3 for medical/surgical reason by provider order No Tracheostomy tube present No No thin liquids due to preexisting dysphagia/baseline modified diet thickened liquids No Exclusion Criteria Result: Proceed Brief Cognitive Screen What is your name? Normal, Where are you right now? Normal, What year is it? Normal. Oral Mechanism Examination Facial Symmetry: Normal, Motion: Normal, Lip Closure: Normal, Oral Mechanism Result: Normal. 3 oz Water Swallow Challenge: Pt able to drink all water without stopping, coughing, choking or throat clearing: Yes Result: PASS MD Notified: John VU. Assessment: 12:53 Reassessment: No changes from previously documented assessment. Patient and/or family ll1 updated on plan of care and expected duration. Pain level reassessed. Patient is alert, oriented x 3, equal unlabored respirations, skin warm/dry/pink. 13:53 Reassessment: No changes from previously documented assessment. gait steady to restroom.ll1 16:10 Reassessment: No changes from previously documented assessment. Patient and/or family ll1 updated on plan of care and expected duration. Pain level reassessed. 16:58 Reassessment: No changes from previously documented assessment. Patient and/or family ll1 updated on plan of care and expected duration. Pain level reassessed. Patient is alert, oriented x 3, equal unlabored respirations, skin warm/dry/pink. 17:42 Reassessment: to MRI via wheelchair then 2nd floor. ll1 Vital Signs: 11:53 BP 154 / 81; Pulse 75; Resp 18; Temp 98.4; Pulse Ox 100% on R/A; Pain 0/10; ll1 12:37 BP 157 / 70; Pulse 87; ss 13:30 BP 150 / 86; Pulse 85; Resp 17; Pulse Ox 100% on R/A; ll1 14:30 BP 136 / 76; Pulse 84; Resp 18; Pulse Ox 100% on R/A; ll1 15:08 BP 130 / 72; Pulse 89; Resp 18; Pulse Ox 98% on R/A; ss 16:10 BP 132 / 69; Pulse 88; Resp 18; Pulse Ox 98% ; Pain 10/10; ll1 16:58 BP 124 / 55; Pulse 91; Resp 17; Pulse Ox 98% ; Pain 6/10; ll1 17:42 BP 123 / 50; Pulse 88; Resp 18; Pulse Ox 98% ; ll1 11:53 Pain Scale: Adult ll1 16:10 Pain Scale: Adult ll1 16:58 Pain Scale: Adult ll1 NIH Stroke Scale Scores: 11:58 NIHSS Score: 4 kc6 12:01 NIHSS Score: 5 cp 12:21 NIHSS Score: 0 cp ED Course: 11:53 Patient arrived in ED. ll1 11:55 Provided Education on: ER procedures and process. ll1 11:56 Triage completed. ll1 11:56 Maintain EMS IV. Dressing intact. Good blood return noted. Site clean \T\ dry. Gauge \T\ ll 1 site: 20 G L AC. 11:58 Eduardo Vasquez MD is Attending Physician. ec2 11:59 John Calderon PA is PHCP. ec2 12:22 Head angio In Process Unspecified. EDMS 12:22 Neck Angio In Process Unspecified. EDMS 12:34 Patient maintains SpO2 saturation greater than 95% on room air. kc6 12:34 Patient has correct armband on for positive identification. Bed in low position. Call [facility] light in reach. Side rails up X2. Adult w/ patient. media monitor on. Pulse ox on. NIBP on. Door closed. Noise minimized. Lights dimmed. Warm blanket given. Pillow given. 12:34 Arm band placed on. kc6 13:02 Anson Davidson RN is Primary Nurse. ll1 13:12 Stroke CXR 1 View In Process Unspecified. EDMS 13:35 Gita Spencer MD is Hospitalizing Provider. cp 16:57 No provider procedures requiring assistance completed. Patient admitted, IV remains in ll1 place. Administered Medications: 12:52 Drug: Aspirin PO 81 mg PO once Route: PO; ll1 13:53 Follow up: Response: No adverse reaction ll1 12:52 Drug: Ativan IVP 0.5 mg IVP once Route: IVP; Site: right antecubital; ll1 13:53 Follow up: Response: No adverse reaction; Anxiety decreased; RASS: Alert and Calm (0) ll1 12:53 Drug: NS 0.9% IV 1000 ml IV at 1000 ml once; to be given as a bolus over 60 minutes ll1 Route: IV; Rate: 1000 ml; Site: right antecubital; 13:52 Follow up: Response: No adverse reaction; IV Status: Completed infusion; IV Intake: ll1 1000ml 12:53 Drug: foLIC Acid IVPB 1 mg IVPB once Route: IVPB; Site: right antecubital; ll1 13:52 Follow up: Response: No adverse reaction; IV Status: Completed infusion; IV Intake: ll1 0.2ml 13:50 Drug: Clopidogrel PO 75 mg PO once Route: PO; ll1 16:10 Follow up: Response: No adverse reaction ll1 16:10 Drug: Acetaminophen PO 1000 mg PO once Route: PO; ll1 16:59 Follow up: Response: No adverse reaction; Pain is decreased ll1 16:10 Drug: Ondansetron IVP 4 mg IVP once; over 2 minutes Route: IVP; Site: left antecubital; ll1 16:59 Follow up: Response: No adverse reaction; Nausea is decreased ll1 Medication: 16:58 VIS not applicable for this client. ll1 Intake: 13:52 IV: 1000ml; Total: 1000ml. ll1 13:52 IV: 0ml; Total: 1000ml. ll1 Outcome: 13:36 Decision to Hospitalize by Provider. cp 16:57 Admitted to Tele accompanied by [facility], via wheelchair, room 218, with chart, Report ll1 called to faxed to [facility], received by Estelle. 16:57 Condition: stable 16:57 Instructed on the need for admit, 17:42 Patient left the ED. ll1 NIH Stroke Scale - NIH Stroke Score Date: 05/05/2024 Time: 11:58 Total Score = 4 10. Dysarthria (speech clarity - read or repeat words) - 1(Mild to Moderate) 11. Extinction and Inattention (visual/tactile/auditory/spatial/personal) - 0(No abnormality) 1a. Level of Consciousness (LOC) - 0(Alert) 1b. Level of Consciousness (LOC) (Month \T\ Age) - 0(Both) 1c. LOC Commands (Open \T\ Closes Eyes/Timber Inspector) - 0(Both) 2. Best Gaze (Lateral Gaze Paresis) - 0(Normal) 3. Visual Field Loss - 0(No visual loss) 4. Facial Palsy - 0(Normal) 5a. Left Arm: Motor (10-second hold) - 0(No drift) 5b. Right Arm: Motor (10-second hold) - 0(No drift) 6a. Left Leg: Motor (5-second hold - always test supine) - 1(Drift) 6b. Right Leg: Motor (5-second hold - always test supine) - 1(Drift) 7. Limb Ataxia (finger/nose \T\ heel/mccormick - test with eyes open) - 0(Absent) 8. Sensory Loss (pinprick arms/legs/face) - 0(Normal) 9. Best Language: Aphasia (description/naming/reading) - 1(Mild to moderate aphasia) Initials: kc6 NIH Stroke Scale - NIH Stroke Score Date: 05/05/2024 Time: 12:01 Total Score = 5 10. Dysarthria (speech clarity - read or repeat words) - 0(Normal) 11. Extinction and Inattention (visual/tactile/auditory/spatial/personal) - 0(No abnormality) 1a. Level of Consciousness (LOC) - 0(Alert) 1b. Level of Consciousness (LOC) (Month \T\ Age) - 2(Neither) 1c. LOC Commands (Open \T\ Closes Eyes/Timber Inspector) - 0(Both) 2. Best Gaze (Lateral Gaze Paresis) - 0(Normal) 3. Visual Field Loss - 0(No visual loss) 4. Facial Palsy - 0(Normal) 5a. Left Arm: Motor (10-second hold) - 0(No drift) 5b. Right Arm: Motor (10-second hold) - 0(No drift) 6a. Left Leg: Motor (5-second hold - always test supine) - 0(No drift) 6b. Right Leg: Motor (5-second hold - always test supine) - 0(No drift) 7. Limb Ataxia (finger/nose \T\ heel/mccormick - test with eyes open) - 0(Absent) 8. Sensory Loss (pinprick arms/legs/face) - 0(Normal) 9. Best Language: Aphasia (description/naming/reading) - 3(Mute, global aphasia) Initials: cp NIH Stroke Scale - NIH Stroke Score Date: 05/05/2024 Time: 12:21 Total Score = 0 10. Dysarthria (speech clarity - read or repeat words) - 0(Normal) 11. Extinction and Inattention (visual/tactile/auditory/spatial/personal) - 0(No abnormality) 1a. Level of Consciousness (LOC) - 0(Alert) 1b. Level of Consciousness (LOC) (Month \T\ Age) - 0(Both) 1c. LOC Commands (Open \T\ Closes Eyes/Timber Inspector) - 0(Both) 2. Best Gaze (Lateral Gaze Paresis) - 0(Normal) 3. Visual Field Loss - 0(No visual loss) 4. Facial Palsy - 0(Normal) 5a. Left Arm: Motor (10-second hold) - 0(No drift) 5b. Right Arm: Motor (10-second hold) - 0(No drift) 6a. Left Leg: Motor (5-second hold - always test supine) - 0(No drift) 6b. Right Leg: Motor (5-second hold - always test supine) - 0(No drift) 7. Limb Ataxia (finger/nose \T\ heel/mccormick - test with eyes open) - 0(Absent) 8. Sensory Loss (pinprick arms/legs/face) - 0(Normal) 9. Best Language: Aphasia (description/naming/reading) - 0(No aphasia) Initials: cp Signatures: Dispatcher [employer] EDMS Cristela Souza RN RN John Stone PA PA cp Anson Davidson RN RN ll1 Stephanie Adams RN RN kc6 Eduardo Vasquez MD MD ec2 Jaquelin Salas RN RN es3 Corrections: (The following items were deleted from the chart) 12:06 11:53 Acuity: SUZANNA 3 ll1 ll1 12:53 11:53 Chief complaint: Patient states: CP since last night. Became unresponsive ll1 at work around 1030, so they called EMS. EMS states: JACEK 204/111, FS 106, 20 R AC ll1
--- NOTE | 2024-05-05 13:37 | EDPHYS ---
Physician Documentation [facility] Name: Caity Mata Age: 58 yrs Sex: Female : 1965 Arrival Date: 05/05/2024 Time: 11:47 Bed 6 Private MD: ED Physician Eduardo Vasquez HPI: 05/05 12:00 This 58 yrs old Female presents to ER via EMS with complaints of Unresponsive, Chest cp Pain. 12:00 The patient's problem is reported as aphasia. Onset: The symptoms/episode cp began/occurred today, about 1030. Duration: This was a single incident. Context: occurred at work. 12:00 Associated signs and symptoms: Pertinent positives: chest pain. Patient's baseline: cp Neuro: alert and fully oriented, Motor: no deficits, Ambulation: walks without assistance, Speech: normal. Historical: - Allergies: 11:56 Codeine; ll1 - PMHx: 11:56 Chronic pain; Depression; Anxiety; Hypercholesterolemia; ll1 - PSHx: 11:56 None; ll1 - Immunization history:: Adult Immunizations up to date. - Infectious Disease History:: Denies. - Social history:: Smoking status: Patient denies any tobacco usage or history of. ROS: 12:00 Neuro: Positive for aphasia, cp 12:00 Cardiovascular: Positive for chest pain, cp 12:00 Eyes: Negative for injury, pain, redness, and discharge, cp 12:00 Constitutional: Negative for body aches, chills, fever, poor PO intake, 12:00 Respiratory: Negative for cough, shortness of breath, wheezing, 12:00 Abdomen/GI: Negative for abdominal pain, vomiting, diarrhea, constipation, 12:00 : Negative for urinary symptoms, 12:00 All other systems are negative, Exam: 12:05 Constitutional: The patient appears alert, awake, non-diaphoretic, non-toxic, well cp developed, well nourished, 12:05 Head/Face: Normocephalic, atraumatic. cp 12:05 Eyes: Pupils: equal, round, and reactive to light and accomodation, Extraocular movements: intact throughout, Conjunctiva: normal, no exudate, no injection, Lids and lashes: appear normal, bilaterally, 12:05 ENT: External ear(s): are unremarkable, Nose: is normal, Mouth: Lips: moist, Oral mucosa: moist, Posterior pharynx: Airway: no evidence of obstruction, patent, 12:05 Chest/axilla: Inspection: normal, 12:05 Cardiovascular: Rate: normal, Rhythm: regular, 12:05 Respiratory: the patient does not display signs of respiratory distress, Respirations: normal, no use of accessory muscles, no retractions, labored breathing, is not present, Breath sounds: are clear throughout, no decreased breath sounds, no stridor, no wheezing, 12:05 Abdomen/GI: Inspection: abdomen appears normal, Palpation: abdomen is soft and non-tender, in all quadrants, 12:05 Neuro: Orientation: non-verbal, Mentation: able to follow commands, 12:20 Radiologist reports: no acute findings, recommends MRI cp Vital Signs: 11:53 BP 154 / 81; Pulse 75; Resp 18; Temp 98.4; Pulse Ox 100% on R/A; Pain 0/10; ll1 12:37 BP 157 / 70; Pulse 87; ss 13:30 BP 150 / 86; Pulse 85; Resp 17; Pulse Ox 100% on R/A; ll1 14:30 BP 136 / 76; Pulse 84; Resp 18; Pulse Ox 100% on R/A; ll1 15:08 BP 130 / 72; Pulse 89; Resp 18; Pulse Ox 98% on R/A; ss 16:10 BP 132 / 69; Pulse 88; Resp 18; Pulse Ox 98% ; Pain 10/10; ll1 16:58 BP 124 / 55; Pulse 91; Resp 17; Pulse Ox 98% ; Pain 6/10; ll1 17:42 BP 123 / 50; Pulse 88; Resp 18; Pulse Ox 98% ; ll1 11:53 Pain Scale: Adult ll1 16:10 Pain Scale: Adult ll1 16:58 Pain Scale: Adult ll1 NIH Stroke Scale Scores: 11:58 NIHSS Score: 4 kc6 12:01 NIHSS Score: 5 cp 12:21 NIHSS Score: 0 cp MDM: 11:59 Medical Screening Exam initiated cp 12:25 Differential diagnosis: CVA, TIA, metabolic disorder, drug effects, acute psychosis, cp anxiety. 13:40 Data reviewed: vital signs, nurses notes, lab test result(s), EKG, radiologic studies, cp CT scan, plain films, I have discussed the patient's presentation/case with the attending Emergency Department Physician; and as a result, I will admit patient. 13:40 Management of patient was discussed with the following: Remelt Pan Tank Operator: DR Kwan who will consult and recommends Aspirin, Plavix and Statin therapy. I considered the following discharge prescriptions or medication management in the emergency department Medications were administered in the Emergency Department. See MAR. Independent interpretation of the following test(s) in the Emergency Department EKG: See my EKG interpretation above. Test considered but Not performed: MRI: not immediately available. Counseling: I had a detailed discussion with the patient and/or guardian regarding the historical points, exam findings, and any diagnostic results supporting the discharge/admit diagnosis, lab results, radiology results, the need for further work-up and treatment in the hospital. Response to treatment: the patient's symptoms have markedly improved after treatment. 05/05 12:00 Order name: Basic Metabolic Panel; Complete Time: 13:09 cp 05/05 13:09 Interpretation: Normal except: BUN 21. 05/05 12:00 Order name: CBC with Diff; Complete Time: 13: cp 05/05 12:00 Order name: Hepatic Function; Complete Time: 13: cp 05/05 12:00 Order name: High Sensitivity Troponin; Complete Time: 13:09 cp 05/05 12:00 Order name: Magnesium; Complete Time: 13: cp 05/05 12:00 Order name: Protime (+inr); Complete Time: 13: cp 05/05 12:00 Order name: Ptt, Activated; Complete Time: 13:09 cp 05/05 12:00 Order name: UDS; Complete Time: 14:50 cp 05/05 12:40 Order name: Glucose, Ancillary Testing; Complete Time: 13:09 EDMS 05/05 12:00 Order name: Stroke CXR 1 View; Complete Time: 14:50 cp 05/05 12:13 Order name: CT; Complete Time: 12:22 EDMS 05/05 12:18 Order name: Head angio; Complete Time: 12:29 EDMS 05/05 12:29 Interpretation: Report reviewed. 05/05 12:18 Order name: Neck Angio; Complete Time: 12:30 EDMS 05/05 16:44 Order name: Brain Wo Cont EDMS 05/05 12:00 Order name: Accucheck; Complete Time: 12:29 cp 05/05 12:00 Order name: Cardiac monitoring; Complete Time: 12:29 cp 05/05 12:00 Order name: EKG - Nurse/Tech; Complete Time: 12:29 cp 05/05 12:00 Order name: IV Saline Lock; Complete Time: 12:29 cp 05/05 12:00 Order name: Labs collected and sent; Complete Time: 12:29 cp 05/05 12:00 Order name: NPO; Complete Time: 12:29 cp 05/05 12:00 Order name: O2 Per Protocol; Complete Time: 12:29 cp 05/05 12:00 Order name: O2 Sat Monitoring; Complete Time: 12:29 cp 05/05 12:00 Order name: Stroke Swallow Screen; Complete Time: 12:29 cp Administered Medications: 12:52 Drug: Aspirin PO 81 mg PO once Route: PO; ll1 13:53 Follow up: Response: No adverse reaction ll1 12:52 Drug: Ativan IVP 0.5 mg IVP once Route: IVP; Site: right antecubital; ll1 13:53 Follow up: Response: No adverse reaction; Anxiety decreased; RASS: Alert and Calm (0) ll1 12:53 Drug: NS 0.9% IV 1000 ml IV at 1000 ml once; to be given as a bolus over 60 minutes ll1 Route: IV; Rate: 1000 ml; Site: right antecubital; 13:52 Follow up: Response: No adverse reaction; IV Status: Completed infusion; IV Intake: ll1 1000ml 12:53 Drug: foLIC Acid IVPB 1 mg IVPB once Route: IVPB; Site: right antecubital; ll1 13:52 Follow up: Response: No adverse reaction; IV Status: Completed infusion; IV Intake: ll1 0.2ml 13:50 Drug: Clopidogrel PO 75 mg PO once Route: PO; ll1 16:10 Follow up: Response: No adverse reaction ll1 16:10 Drug: Acetaminophen PO 1000 mg PO once Route: PO; ll1 16:59 Follow up: Response: No adverse reaction; Pain is decreased ll1 16:10 Drug: Ondansetron IVP 4 mg IVP once; over 2 minutes Route: IVP; Site: left antecubital; ll1 16:59 Follow up: Response: No adverse reaction; Nausea is decreased ll1 Disposition Summary: 05/05/24 13:36 Hospitalization Ordered Notes: Hospitalization Status: Inpatient Admission cp Provider: Gita Spencer cp Location: Telemetry/MedSurg (Inpatient) cp Condition: Fair cp Problem: new cp Symptoms: have improved cp Bed/Room Type: Standard cp Room Assignment: 218(05/05/24 16:50) bd Diagnosis - Aphasia cp - Weakness cp - Chest pain, unspecified cp Forms: - Medication Reconciliation Form cp - SBAR form cp - Leadership Thank You Letter cp NIH Stroke Scale - NIH Stroke Score Date: 05/05/2024 Time: 11:58 Total Score = 4 10. Dysarthria (speech clarity - read or repeat words) - 1(Mild to Moderate) 11. Extinction and Inattention (visual/tactile/auditory/spatial/personal) - 0(No abnormality) 1a. Level of Consciousness (LOC) - 0(Alert) 1b. Level of Consciousness (LOC) (Month \T\ Age) - 0(Both) 1c. LOC Commands (Open \T\ Closes Eyes/Channel Layer) - 0(Both) 2. Best Gaze (Lateral Gaze Paresis) - 0(Normal) 3. Visual Field Loss - 0(No visual loss) 4. Facial Palsy - 0(Normal) 5a. Left Arm: Motor (10-second hold) - 0(No drift) 5b. Right Arm: Motor (10-second hold) - 0(No drift) 6a. Left Leg: Motor (5-second hold - always test supine) - 1(Drift) 6b. Right Leg: Motor (5-second hold - always test supine) - 1(Drift) 7. Limb Ataxia (finger/nose \T\ heel/mccormick - test with eyes open) - 0(Absent) 8. Sensory Loss (pinprick arms/legs/face) - 0(Normal) 9. Best Language: Aphasia (description/naming/reading) - 1(Mild to moderate aphasia) Initials: kc6 NIH Stroke Scale - NIH Stroke Score Date: 05/05/2024 Time: 12:01 Total Score = 5 10. Dysarthria (speech clarity - read or repeat words) - 0(Normal) 11. Extinction and Inattention (visual/tactile/auditory/spatial/personal) - 0(No abnormality) 1a. Level of Consciousness (LOC) - 0(Alert) 1b. Level of Consciousness (LOC) (Month \T\ Age) - 2(Neither) 1c. LOC Commands (Open \T\ Closes Eyes/Channel Layer) - 0(Both) 2. Best Gaze (Lateral Gaze Paresis) - 0(Normal) 3. Visual Field Loss - 0(No visual loss) 4. Facial Palsy - 0(Normal) 5a. Left Arm: Motor (10-second hold) - 0(No drift) 5b. Right Arm: Motor (10-second hold) - 0(No drift) 6a. Left Leg: Motor (5-second hold - always test supine) - 0(No drift) 6b. Right Leg: Motor (5-second hold - always test supine) - 0(No drift) 7. Limb Ataxia (finger/nose \T\ heel/mccormick - test with eyes open) - 0(Absent) 8. Sensory Loss (pinprick arms/legs/face) - 0(Normal) 9. Best Language: Aphasia (description/naming/reading) - 3(Mute, global aphasia) Initials: cp NIH Stroke Scale - NIH Stroke Score Date: 05/05/2024 Time: 12:21 Total Score = 0 10. Dysarthria (speech clarity - read or repeat words) - 0(Normal) 11. Extinction and Inattention (visual/tactile/auditory/spatial/personal) - 0(No abnormality) 1a. Level of Consciousness (LOC) - 0(Alert) 1b. Level of Consciousness (LOC) (Month \T\ Age) - 0(Both) 1c. LOC Commands (Open \T\ Closes Eyes/Channel Layer) - 0(Both) 2. Best Gaze (Lateral Gaze Paresis) - 0(Normal) 3. Visual Field Loss - 0(No visual loss) 4. Facial Palsy - 0(Normal) 5a. Left Arm: Motor (10-second hold) - 0(No drift) 5b. Right Arm: Motor (10-second hold) - 0(No drift) 6a. Left Leg: Motor (5-second hold - always test supine) - 0(No drift) 6b. Right Leg: Motor (5-second hold - always test supine) - 0(No drift) 7. Limb Ataxia (finger/nose \T\ heel/mccormick - test with eyes open) - 0(Absent) 8. Sensory Loss (pinprick arms/legs/face) - 0(Normal) 9. Best Language: Aphasia (description/naming/reading) - 0(No aphasia) Initials: cp Addendum: 05/06/2024 20:24 I evaluated the patient with the PA, patient was awake and follow commands, ec2 reportedly was unresponsive/nonverbal however was talkative to me without focality. Accordingly we decided to forego TNK. I agree with stroke workup for possible TIA.. Signatures: Dispatcher [employer] EDMS Aby Boudreaux Corey, PA PA cp Anson Davidson, RN RN ll1 Eduardo Vasquez MD MD ec2 Corrections: (The following items were deleted from the chart) 05/05 12:00 12:00 BASIC METABOLIC PANEL+C.LAB.BRZ ordered. EDMS EDMS 12:00 12:00 CBC+H.LAB.BRZ ordered. EDMS EDMS 12:00 12:00 HEPATIC FUNCTION+C.LAB.BRZ ordered. EDMS EDMS 12:00 12:00 Troponin High Sensitivity+C.LAB.BRZ ordered. EDMS EDMS 12:00 12:00 MAGNESIUM+C.LAB.BRZ ordered. EDMS EDMS 12:00 12:00 PROTIME (+INR)+COAG.LAB.BRZ ordered. EDMS EDMS 12:00 12:00 PTT, ACTIVATED+COAG.LAB.BRZ ordered. EDMS EDMS 12:00 12:00 URINE DRUG SCREEN+UC.LAB.BRZ ordered. EDMS EDMS 12:00 12:00 CT-STROKE BRAIN W/O CONTRAST+CT.RAD.BRZ ordered. EDMS EDMS 12:00 12:00 Chest Single View+RAD.RAD.BRZ ordered. EDMS EDMS 16:50 13:36 cp bd
[2024-05-05] MEDS ORDERED: CLOPIDOGREL 75 MG TABLET ONE (13:43)
[2024-05-05 14:26] LABS: Barbiturates NEGATIVE (NEGATIVE); Benzodiazepines NEGATIVE (NEGATIVE); Cocaine NEGATIVE (NEGATIVE); METHAMPHETAM NEGATIVE (NEGATIVE); Methadone NEGATIVE (NEGATIVE); Opiates NEGATIVE (NEGATIVE); Phencyclidine NEGATIVE (NEGATIVE); THC Cannibis NEGATIVE (NEGATIVE)
[2024-05-05] MEDS ORDERED: ONDANSETRON 4 MG/2 ML VIAL ONE (16:04)
[2024-05-05] MEDS ORDERED: ACETAMINOPHEN 500 MG TAB ONE (16:05)
--- NOTE | 2024-05-05 18:10 | RAD REPORT ---
EXAMINATION: MRI BRAIN WITHOUT CONTRAST CLINICAL INDICATION: Female, 58 years old. TIA/CVA TECHNIQUE: Multiplanar multisequence MR images of the brain were obtained without intravenous contras t. Unless otherwise specified, incidental findings do not require dedicated imaging follow-up. [id number]. COMPARISON: Same-day head CT FINDINGS: INTRACRANIAL: No acute infarct identified. No significant mass effect or midline shift.No hydrocepha arya. No significant white matter disease.Age appropriate cerebral atrophy. VASCULATURE: Normal signal voids in the larger intracranial arteries and dural venous sinuses. SINUSES: The paranasal sinuses are clear.No mastoid effusions. BONE: The marrow signal pattern is within normal limits. IMPRESSION: No acute intracranial abnormality. Specifically, no evidence of acute infarct.
[2024-05-05] MEDS ORDERED: ONDANSETRON 4 MG/2 ML VIAL IV PRN (18:56)
[2024-05-05] MEDS ORDERED: MORPHINE 2 MG/ML SYR IV PRN (18:56)
--- NOTE | 2024-05-05 18:59 | P.HP ---
Certification for Inpatient Patient admitted to: Observation With expected LOS: <2 Midnights Patient will require the following post-hospital care: None Practitioner: I am a practitioner with admitting privileges, knowledge of patient current condition, hospital course, and medical plan of care. Services: Services provided to patient in accordance with Admission requirements found in Title 42 Section 412.3 of the Code of Federal Regulations Patient History Date of Service: 05/05/24 Reason for admission: TIA History of Present Illness: Patient is a 58-year-old female who came to the hospital with aphasia and weakness. Patient has had symptoms for the last 12 hours. Patient came to the ER for evaluation. In the ER patient had CT imaging done which was negative. MRI of the brain is negative as well. Patient will be admitted to the hospital for observation. Allergies codeine [Codeine] Allergy (Intermediate, Verified 05/05/24 20:25) Rash Home Medications: Aspirin [Aspirin EC 81 MG] 81 mg PO DAILY #30 tab 05/06/24 Butalb/Acetaminophen/Caffeine [Fioricet 50-300-40 mg Capsule] 1 each PO Q12HP PRN #20 tab 05/06/24 ALPRAZolam [Xanax] 0.5 mg PO BID PRN #20 tab 05/07/24 - Past Medical/Surgical History Past Medical History: Patient denies medical history Past Surgical History: Patient denies surgical history - Family History Father Family History: Reviewed- Non-Contributory - Social History Smoking Status: Former smoker Smoking therapy provided: Yes Alcohol use: Yes CD- Drugs: Yes Review of Systems 10-point ROS is otherwise unremarkable Physical Examination - Vital Signs Temperature: 98.4 F Blood Pressure: 123/50 Pulse: 88 Respirations: 18 - Physical Exam General: Alert, In no apparent distress, Oriented x3 HEENT: Atraumatic, PERRLA, Mucous membr. moist/pink, EOMI, Sclerae nonicteric Neck: Supple, 2+ carotid pulse no bruit, No LAD, Without JVD or thyroid abnormality Respiratory: Clear to auscultation bilaterally, Normal air movement Cardiovascular: Regular rate/rhythm, Normal S1 S2, No murmurs Gastrointestinal: Normal bowel sounds, Soft and benign, Non-distended, No tenderness Musculoskeletal: No clubbing, No swelling, No tenderness Integumentary: No rashes Neurological: Normal gait, Normal speech, Normal strength at 5/5 x4 extr, Normal tone, Sensation intact, Cranial nerves 3-12 intact, Normal affect Lymphatics: No axilla or inguinal lymphadenopathy - Studies Laboratory Data (last 24 hrs) 05/05/24 05/05/24 05/05/24 12:26 12:26 12:26 WBC 5.30 Hgb 12.5 Hct 36.8 Plt Count 239 PT 11.2 INR 0.98 APTT 28.0 Sodium 140 Potassium 3.8 BUN 21 H Creatinine 0.64 Glucose 94 Magnesium 1.9 Total Bilirubin 0.6 AST 16 ALT 23 Alkaline Phosphatase 63 Assessment & Plan - Problems (Diagnosis) (1) TIA (transient ischemic attack) Status: Acute - Plan 1. MRI of the brain reviewed 2. Echocardiogram and carotid Doppler 3. Anti-platelet therapy and statin therapy 4. Neurology consultation 5. Physical therapy/occupational therapy/speech therapy evaluation 6. Modified barium swallow study 7. DVT prophylaxis Discharge Plan: Home Plan to discharge in: 24 Hours - Advance Directives Does patient have a Living Will: No Does patient have a Durable POA for Healthcare: No - Code Status/Comfort Care Code Status Assessed: Yes Code Status: Full Code Critical Care: No Time Spent Managing PTS Care (In Minutes): 45
[2024-05-05] MEDS: ATORVASTATIN 40 MG TAB PO SCH (20:28)
[2024-05-05] MEDS: ACETAMINOPHEN 500 MG TAB PO PRN (20:28)
[2024-05-05 23:09] VITALS: O2SAT 97
[2024-05-05] MEDS: NA CHLORIDE 0.9% 1,000 ML IV SCH (23:15)
[2024-05-06 04:30] LABS: Absolute Eosinophils 0.3 K/uL (0-0.5); Absolute Lymphocytes (CBC) 1.4 K/uL (0.7-4.9); Absolute Monocytes 0.4 K/uL (0.1-1.3); Absolute Neutrophil 1.7 K/uL (1.8-8.0); Eosinophils % 7.8 % (0-4.4); Hemoglobin 12.1 g/dL (12.0-15.0); Lymphocytes % 36.2 % (15.3-44.8); MCH 30.5 pg (27.0-35.0); MCHC 33.5 g/dL (32.0-36.0); MCV 91.1 fL (80-100); MPV 7.6 fL (7.6-11.3); Monocytes % 10.8 % (3.3-12.3); Neutrophils % 44.2 % (41.7-73.7); Platelets 222 thou/uL (152-406); RBC Red Blood Cell Count 3.96 M/uL (3.86-4.86); Red Cell Distribution Width 12.7 % (12.1-15.2)
[2024-05-06 04:48] LABS: Albumin 3.4 g/dL (3.4-5.0); Albumin/Globulin Ratio 1.2 (1.1-1.8); Anion Gap 6.2 mEq/L (5.0-15.0); Bilirubin Total 0.5 mg/dL (0.2-1.0); Globulin 2.9 g/dL (2.3-3.5); Potassium 4.2 mEq/L (3.5-5.1); Protein, Total 6.3 g/dL (6.4-8.2); Troponin High Sensitivity 5.5 pg/mL (<58.9)
[2024-05-06] MEDS: FLU (Fluarix Triv) TS24-25(6MOS UP)/PF 45 MCG/0.5 ML Syringe IM ONE (07:30)
[2024-05-06] MEDS: ASPIRIN EC 81 MG TAB PO SCH (09:00)
[2024-05-06] MEDS ORDERED: ACETAMIN/CAFFEINE/BUTALB TAB PO ONE ×2 (10:00→12:45)
--- NOTE | 2024-05-07 08:21 | ECHO ---
HEIGHT: 5 ft 5 in WEIGHT: 120 lb 0 oz DATE OF STUDY: 05/06/[address]: Gita Spencer MD 2-DIMENSIONAL: YES M.MODE: YES DOPPLER: YES COLOR FLOW: YES TDS: NO PORTABLE: YES DEFINITY: NO BUBBLE STUDY: NO DIAGNOSIS: HIGH BLOOD PRESSURE DUE TO POSSIBLE CEREBRAL VASCULAR ACCIDENT CARDIAC HISTORY: CATHERIZATION: NO SURGERY: NO PROSTHETIC VALVE: NO PACEMAKER: NO MEASUREMENTS (cm) DIASTOLIC (NORMALS) SYSTOLIC (NORMALS) IVSd 0.9 (0.6-1.2) LA Diam 3.5 (1.9-4.0) LVEF 60-65% LVIDd 3.8 (3.5-5.7) LVIDs 2.8 (2.0-3.5) %FS 25% LVPWd 1.1 (0.6-1.2) Ao Diam 2.9 (2.0-3.7) 2 DIMENSIONAL ASSESSMENT: RIGHT ATRIUM: NORMAL LEFT ATRIUM: MILDLY DILATED RIGHT VENTRICLE: NORMAL LEFT VENTRICLE: NORMAL TRICUSPID VALVE: MILD TRICUSPID REGURGITATION MITRAL VALVE: NORMAL PULMONIC VALVE: NORMAL AORTIC VALVE: NORMAL PERICARDIAL EFFUSION: NONE AORTIC ROOT: NORMAL LEFT VENTRICULAR WALL MOTION: NORMAL. DOPPLER/COLOR FLOW: NORMAL. COMMENTS: 1. NORMAL LEFT VENTRICULAR SYSTOLIC FUNCTION, EJECTION FRACTION 60-65%, NORMAL WALL MOTION. 2. NORMAL DIASTOLIC FUNCTION. 3. MILD ELEVATED FILLING PRESSURE (RIGHT ATRIAL PRESSURE 5-10mmHg) TECHNOLOGIST: MEGHAN CALDWELL
--- NOTE | 2024-05-08 17:00 | EKG ---
Test Date: 2024-05-05 Test Time: 12:23:36 Counseling Specialist: VASQUEZ MEASUREMENT RESULTS: Intervals: Rate: 92 NV: 150 QRSD: 94 QT: 368 QTc: 455 [place]: P: 57 NV: 150 QRS: 73 T: 28 INTERPRETIVE STATEMENTS: Normal sinus rhythm Nonspecific ST abnormality Abnormal ECG No previous ECG available for comparison Electronically Signed On 05-08-24 16:48:32 [employer] TE[employer] by Jimmy Valero
[2024-05-23 05:27] VITALS: BP 123/50; TEMP 98.4
== END 2024-05-06 13:54 | disposition home or self-care (01) ==
LOC: ER 11:47 → ERHOLD 16:41 → 2ND 16:57
PROVIDERS: ADMIT Hospitalist; ATTEND Hospitalist
DX: G45.9 Transient cerebral ischemic attack, unspecified (principal); E78.00 Pure hypercholesterolemia, unspecified; F41.9 Anxiety disorder, unspecified; F32.A Depression, unspecified; R53.1 Weakness; R47.01 Aphasia; R29.705 NIHSS score 5; Z88.5 Allergy status to narcotic agent
CPT/HCPCS: 93005; 93306; 85025 ×2; 80048; 36415; 83735; 85610; 80061; 82565; 82947; 80076; 85730; 84484 ×2; 80053; 80307; 70496; 70498; 70450; 71045; 70551; 99285; Q9967; J2405; J7030 ×3; G0378 ×3